=== PATIENT | female | born 2005 | race Two or more races ===

== ENCOUNTER 2025-09-13 15:41 | Emergency (ER) | payer OTHER ==
[~2025-09-13] VITALS: Ht 154.9 cm; Wt 50.8 kg
[2025-09-13] MEDS ORDERED: FAMOTIDINE/PF 20 MG/2 ML VIAL IV STA (16:49)
[2025-09-13] MEDS ORDERED: 0.9 % SODIUM CHLORIDE 500 ML IV SCH (17:00)
[2025-09-13] MEDS ORDERED: 0.9 % SODIUM CHLORIDE 500 ML IV ONE (17:00)
[2025-09-13 17:26] LABS: BASO % 0.5 % (0.1-1.2); EOS # 0.03 (0.04-0.54); EOS % 0.4 % (0.7-7.0); LYMPH # 3.14 (1.18-3.74); LYMPH % 40.9 % (19.3-53.1); MEAN PLATELET VOLUME 10.90 fl (9.4-12.4); MONO # 0.61 (0.24-0.82); MONO % 8.0 % (4.7-12.5); NEUT # 3.83 (1.56-6.13); NEUT % 49.9 % (34.0-71.1); RED CELL DISTRIBUTION WIDTH 12.5 % (11.6-14.4)
[2025-09-13 17:57] LABS: ALT/SGPT 16.0 U/L (12-78); AST/SGOT 11.0 U/L (15-37); BILIRUBIN TOTAL 0.37 mg/dL (0.3-1.2); BUN CREA RATIO 21.0 (7.0-25.0); CREATININE SERUM 0.62 mg/dL (0.55-1.02); GFR 122.72; GLOBULINA 3.8 G/DL (2.4-3.5); GLUCOSE FASTING 82.0 mg/dL (65-100); OSMOLALITY SERUM 280.0 MOSM/KG (275-295)
[2025-09-13 20:04] LABS: URINE APPEARANCE Clear; URINE BILIRRUBIN Negative (NEGATIVE); URINE BLOOD Negative; URINE COLOR Yellow; URINE GLUCOSE Negative (NEGATIVE); URINE KETONE Negative (NEGATIVE); URINE LEUKOCYTE Moderate; URINE NITRATE Negative; URINE PROTEIN Negative (NEGATIVE); URINE UROBILINOGEN 1.0 E.U./dl
[2025-09-13 20:09] LABS: URINE BACTERIA 594.0 uL (0.0-1933); URINE EPITHELIAL CELLS 13.8 uL (0.0-38.8); URINE WBC 38.4 uL (0.0-23.2)
[2025-09-13 20:22] LABS: URINE CAST 0.00 uL (0.0-1.40); URINE RBC 0.5 uL (0.0-20.8)
[2025-09-13] MEDS ORDERED: KETOROLAC TROMETHAMINE 30 MG VIAL IV STA (21:19)
== END 2025-09-14 01:01 | disposition home or self-care (01) ==
LOC: ER 15:41 → EMR PED 15:41
PROVIDERS: Pediatrics
DX: K29.70 Gastritis, unspecified, without bleeding (principal); R10.20 Pelvic and perineal pain unspecified side; R10.9 Unspecified abdominal pain